=== PATIENT | male | born 2000 | race Caucasian/White ===

== ENCOUNTER 2020-11-22 10:44 | Emergency (ER) | payer OTHER ==
[~2020-11-22] VITALS: Ht 188 cm; Wt 78.3 kg
--- NOTE | 2020-11-22 10:58 | NUR ---
BILATERAL TONSIL SWELLING, WHITE POCKETS EVIDENT ON RT TONSIL. PT C/O PAINFUL SWALLOWING, PAIN BILATERAL EARS, BODY ACHES. PT SITTING UP IN BED, RESPIRATIONS EVEN AND UNLABORED ON RA. NAD NOTED AT THIS TIME. ERPA AT BEDSIDE FOR ASSESSMENT. SIDE RAIL UP, CALL LIGHT IN REACH.
--- NOTE | 2020-11-22 11:14 | NUR ---
AWAITING MED FROM PHARMACY
[2020-11-22] MEDS ORDERED: DEXAMETHASONE 4 MG TABLET ONE (11:22)
[2020-11-22] MEDS ORDERED: KETOROLAC 30 MG/1 ML ONE (11:23)
[2020-11-22] MEDS ORDERED: DEXAMETHASONE 4 MG TABLET PO ONE (11:30)
[2020-11-22] MEDS ORDERED: KETOROLAC 30 MG/1 ML IM ONE (11:30)
[2020-11-22] MEDS ORDERED: maalox/diphenh/lido/sucralfate 5 ML PO PRN (11:30)
[2020-11-22 12:15] VITALS: BP 122/74
== END 2020-11-22 12:17 | disposition home or self-care (01) ==
LOC: ED 11:54
DX: J02.9 Acute pharyngitis, unspecified (principal); Z20.822 Contact with and (suspected) exposure to COVID-19; M79.10 Myalgia, unspecified site; H92.03 Otalgia, bilateral
CPT/HCPCS: 87081; 87880; 96372; 99283; J1885; U0003; U0005

== ENCOUNTER 2020-11-24 19:15 | Emergency (ER) | payer OTHER ==
[~2020-11-24] VITALS: Ht 188 cm; Wt 78.3 kg
[2020-11-24] MEDS ORDERED: DEXAMETHASONE 4 MG TABLET PO ONE (19:30)
[2020-11-24] MEDS ORDERED: DEXAMETHASONE 4 MG TABLET ONE (19:46)
[2020-11-24 20:40] VITALS: BP 123/72
== END 2020-11-24 21:15 | disposition home or self-care (01) ==
LOC: ED 19:56
DX: J02.8 Acute pharyngitis due to other specified organisms (principal); Z20.822 Contact with and (suspected) exposure to COVID-19; B97.89 Other viral agents as the cause of diseases classified elsewhere; J45.909 Unspecified asthma, uncomplicated
CPT/HCPCS: 99283

== ENCOUNTER 2021-04-08 17:47 | Emergency (ER) | payer OTHER ==
[~2021-04-08] VITALS: Ht 185.4 cm; Wt 85.7 kg
[2021-04-08] MEDS ORDERED: PROPARACAINE OPHTH 0.5%, 15ML EACHEYE ONE (18:30)
[2021-04-08] MEDS ORDERED: FLUORESCEIN OPHTHALMIC 1 MG STRIP EACHEYE ONE (18:30)
--- NOTE | 2021-04-08 19:27 | NUR ---
pt to room from lobby
[2021-04-08 19:30] VITALS: BP 122/73
[2021-04-08] MEDS ORDERED: PROPARACAINE OPHTH 0.5%, 15ML ONE (19:34)
[2021-04-08] MEDS ORDERED: FLUORESCEIN OPHTHALMIC 1 MG STRIP ONE (19:34)
== END 2021-04-08 20:28 | disposition home or self-care (01) ==
LOC: ED 20:26
DX: S05.02XA Injury of conjunctiva and corneal abrasion without foreign body, left eye, initial encounter (principal); X58.XXXA Exposure to other specified factors, initial encounter; Y93.89 Activity, other specified; Y92.89 Other specified places as the place of occurrence of the external cause; Y99.8 Other external cause status
CPT/HCPCS: 99283